=== PATIENT | male | born 1985 | race Two or more races ===

== ENCOUNTER 2021-04-01 19:04 | Inpatient (IN) | payer OTHER ==
[~2021-04-01] VITALS: Ht 172.7 cm; Wt 88.0 kg
--- NOTE | 2021-04-01 19:21 | NUR ---
PT BIBRA [address] ACCORDING TO PARAMEDICS FRIENDS REPORT PT HAD BEEN DRINKING AND NOT WAKING UP. PT DOES NOT RESPOND TO PAINFUL STIMULI. CONNECTED PT TO POX AND MONITOR. SAFETY MEASURES IN PLACE
--- NOTE | 2021-04-01 19:25 | NUR ---
RAC #20G S/L & LAC #20G S/L PATENT AND INTACT. BLOOD COLLECTED AND SENT TO LAB. IVF NS 1000ML INFUSING PER LUTSKY'S VERBAL ORDER
[2021-04-01] MEDS ORDERED: NALOXONE PREFILLED SYRINGE 2 MG/2 ML SYRINGE ONE ×2 (19:29→19:36)
[2021-04-01] MEDS ORDERED: PROPOFOL 100 ML ONE ×2 (19:43→21:29)
[2021-04-01] MEDS: PROPOFOL 100 ML IV PRN ×5 (19:45→23:17)
--- NOTE | 2021-04-01 19:45 | NUR ---
DR. ZAY HAYNES AND RT AT PT'S BEDSIDE. PT NOT RESPONSIVE TO PAIN STUMN PER DR. COLLAZO'S VERBAL ORDERS: 1929 - NARCAN 2MG IVP 1934 NARCAN 2MG IVP 1939 ETON 20MG 1940 SUCC 100MG 1942 PT INTUBATED BY ZAY HAYNES 23 CM AT LIP & ETT 7.5 SIZE. BILATERAL BREATH SOUNDS HEARD. 1944 STARTED PROPOFOL 5MCG/KG/ML. 1944 PT CONNECTED TO VENTILATOR. PT TOLERATING SETTINGS WELL AT 100%: AC 15, TV 500, FIO2 100, PEEP 5
--- NOTE | 2021-04-01 20:11 | NUR ---
RT NOTE INTUBATED ALOC PT IN BED 13 W/ 7.5 ETTUBE 23 AT THE LIP, ON THE RIGHT SIDE. BILATERAL CHEST RISE WITH COLOR CHANGE PRESENT WHILE BAGGING. PLACED BITE BLOCK D/T PT WAKING UP. CURRENT SETTING APPLIED AC VC 14 500 100 +5. SUCTIONE CLEAR WHITE ORAL SECRETIONS. NONE VIA ETTUBE. NO INCREASED WOB. NO S/S OF RESPIRATORY DISTRESS NOTED. WILL CONTINUE TO MONITOR T/O SHIFT. ABG WILL BE DONE AFTER 1 HOUR.
--- NOTE | 2021-04-01 20:16 | NUR ---
16FR F/C PATENT AND INTACT. CLEAR YELLOW URINE DRAINING WELL. URINE COLLECTED AND SENT TO LAB
[2021-04-01 20:19] LABS: BASOPHILS # (AUTO) 0.1 K/uL (0.0-0.2); BASOPHILS % (AUTO) 0.5 % (0.0-2.0); EOSINOPHILS % (AUTO) 2.2 % (0.0-6.0); HEMATOCRIT 45 % (39-51); HEMOGLOBIN 15.8 g/dL (13.5-17.5); LYMPHOCYTES # (AUTO) 1.6 K/uL (0.8-4.8); LYMPHOCYTES % (AUTO) 16.6 % (20.0-44.0); MEAN CORPUSCULAR HGB CONC 35 g/dl (31.0-36.0); MEAN CORPUSCULAR VOLUME 98 fL (80-96); MONOCYTES # (AUTO) 0.8 K/uL (0.1-1.30); MONOCYTES % (AUTO) 8.3 % (2.0-12.0); NEUTROPHILS # (AUTO) 7.1 K/uL (1.8-8.9); NEUTROPHILS % (AUTO) 72.4 % (43.0-81.0); PLATELET COUNT (AUTO) 250 K/uL (150-450); WHITE BLOOD COUNT (AUTO) 9.7 K/uL (4.3-11.0)
[2021-04-01 20:30] LABS: CALCIUM, SERUM 7.8 mg/dL (8.5-10.1); CARBON DIOXIDE 26 mmol/L (21-32); CHLORIDE 104 mmol/L (98-107); CREATININE 0.9 mg/dL (0.6-1.3); GLUCOSE 112 mg/dL (74-106); SODIUM SERUM 141 mmol/L (136-145); UREA NITROGEN, BLOOD 10 mg/dL (7-18)
--- NOTE | 2021-04-01 20:40 | NUR ---
PT TAKEN TO RADIOLOGY FOR CT AND XRAY VIA ACLS PROTOCOL WITH RT
[2021-04-01 20:41] LABS: ACETAMINOPHEN 0 ug/ml (10-30); ALANINE AMINOTRANSFERASE 130 U/L (12-78); ALCOHOL, BLOOD 396 mg/dL (0-0); ALKALINE PHOSPHATASE 79 U/L (46-116); ASPARTATE AMINOTRANSFERASE 136 U/L (15-37); BILIRUBIN,DIRECT 0.2 mg/dL (0.0-0.2); BILIRUBIN,TOTAL 0.5 mg/dL (0.2-1.0); TOTAL PROTEIN, SERUM 6.3 g/dL (6.4-8.2)
--- NOTE | 2021-04-01 20:51 | NUR ---
PT RETURNED TO ER BED 13 FROM RADIOLOGY VIA ACLS PROTOCOL
--- NOTE | 2021-04-01 20:57 | NUR ---
RT NOTE TRANSFERRED PT TO/ FROM CT. NO S/S OF ACUTE RESPIRATORY DISTRESS. WILL CONTINUE TO MONITOR T/O SHIFT.
[2021-04-01 20:58] LABS: BILIRUBIN,URINE NEGATIVE (NEGATIVE); COLOR,URINE YELLOW (YELLOW); LEUKOCYTE ESTERASE ,URINE NEGATIVE (NEGATIVE); NITRITE, URINE NEGATIVE (NEGATIVE); PH,URINE 6.5 (5.0-8.0); PROTEIN,URINE NEGATIVE (NEGATIVE); UGLUCOSE NEGATIVE (NEGATIVE); UROBILINOGEN,URINE 0.2 EU/dL (0.2)
--- NOTE | 2021-04-01 21:11 | NUR ---
REPORT GIVEN TO DIPIKA UNIT CLERK FOR MELLY
[2021-04-01] MEDS ORDERED: NALOXONE PREFILLED SYRINGE 2 MG/2 ML SYRINGE IV ONE ×2 (21:30)
[2021-04-01] MEDS ORDERED: SUCCINYLCHOLINE CHLORIDE 20 MG/ML VIAL IV ONE (21:30)
[2021-04-01] MEDS ORDERED: ETOMIDATE 2 MG/ML VIAL IV ONE (21:30)
--- NOTE | 2021-04-01 21:33 | NUR ---
RT AT PT'S BEDSIDE FOR ABG
[2021-04-01 21:57] LABS: ABG BASE EXCESS -5.3 mmol/L; ABG OXYGEN SATURATION 99.4 % (92.0-98.5); ABG PCO2 41.5 mmHg (35.0-45.0); ABG PH 7.314 (7.350-7.450); ABG PO2 430.6 mmHg (75.0-100.0); AaDO2 240.9 mmHg; COHb 0.3 % (0.5-1.5); MetHb 0.3 % (0.0-1.5); O2Hb 98.8 % (94.0-97.0); SITE, ABG Right Radial; VENT MODE, BG AC 14 500 100% +5
[2021-04-01] MEDS ORDERED: IV NS 0.9% 1,000 ML BAG IV ONE (22:00)
[2021-04-01] MEDS ORDERED: PROPOFOL 100 ML IV PRN (22:00)
--- NOTE | 2021-04-01 22:04 | NUR ---
RT NOTE ABG DONE. RESULTS GIVEN TO RN AND MD. LOWERED FIO2 TO 60% FROM 100%.
[2021-04-01] MEDS ORDERED: POTASSIUM CL. PREMIX PERIPHER. 150 ML ONE (22:05)
[2021-04-01] MEDS: POTASSIUM CL. PREMIX PERIPHER. 50 ML IV SCH ×2 (22:21→23:20)
--- NOTE | 2021-04-01 22:28 | NUR ---
MRSA SWAB COLLECTED AND SENT TO LAB. PATIENT'S BELONGINGS LIST DONE.
[2021-04-01] MEDS ORDERED: ACETAMINOPHEN 650 MG/SUPP.RECT RC PRN (22:30)
[2021-04-01] MEDS ORDERED: NOREPINEPHRINE 8 MG in IV NS 0.9% 250 ML IV PRN (22:30)
--- NOTE | 2021-04-01 22:48 | NUR ---
RT NOTE TRANSPORTED PT SAFELY FROM ER BED 13 TO ICU 354. VENT SETTING AC VC 14 500 60% +5. ETT 7.5 AT 23 LIPLINE. PLUGGED INTO RED OUTLET AND ALARMS ON AND AUDIBLE. NO SOB OR S/S OF ACUTE RESPIRATORY DISTRESS NOTED. WILL CONTINUE TO MONITOR T/O SHIFT. Addendum: 04/02/21 at 0352 by STEPHY JORGE RT CORRECTION BED 254, NOT 354
--- NOTE | 2021-04-01 22:49 | NUR ---
PT TRANSFERRED TO ICU 254 VIA ACLS PROTOCOL WITH RT. PT ON PROPOFOL 65MCG/KG/MIN; PT SEDATED; ARROUNSABLE TO PAIN. RAJAN ASSISTANT SALES MANAGER AWARE. BEDSIDE REPORT GIVEN TO DIPIKA BRUCE FOR MELLY. ALL BELONGINGS WITH PT. VSS TOLERATED TRANSFER WELL.
--- NOTE | 2021-04-01 22:50 | NUR ---
NEWS AGENT NOTE ADMIT 35 YEARS OLD MALE TO ICU UNIT AT ROOM 254 NOT VERBALLY RESPONSIVE ONLY RESPONSE TO PAIN STIMULI,ON MECHANICAL VENT ORALLY INTUBATED 23/7.5 AC 14 TV 500 FIO2:60% PEEP 5 ADMITTING DIAGNOSIS IS ACUTE HYPOXIC RESPIRATORY FAILURE,PATIENT SEDATED ON PROPOFOL DRIP 65MCG/KG/MIN,PRIOR ADMISSION AT ER,IV SITE IS ON LEFT AC AND RIGHT AC INTACT PATENT,FRENCH CATHETER IN PLACE URINE DRAINING YELLOW /CLEAR BY GRAVITY,SOFT BILATERAL WRIST RESTRAIN IN PLACE WILL CHECK EVERY 15 MINS FOR SKIN BREAKDOWN AND CIRCULATION,SAFETY MEASURE IMPLEMENT CONTINUE TO MONITOR
[2021-04-01] MEDS ORDERED: VANCOMYCIN 1.5 GM in IV D5W 500ml IV ONE (23:00)
[2021-04-01 23:01] VITALS: BP 136/103
[2021-04-01] MEDS: ENOXAPARIN SODIUM 40 MG/0.4 ML DISP.SYRIN SQ SCH (23:18)
[2021-04-01] MEDS ORDERED: VANCOMYCIN 1 GM VIAL ONE (23:20)
[2021-04-01 23:21] VITALS: BP 118/77
[2021-04-01] MEDS ORDERED: PIPERACILLIN /TAZOBACTAM 3.375 G VIAL IV ONE (23:21)
[2021-04-01 23:24] VITALS: BP 136/103
[2021-04-01 23:40] VITALS: BP 113/72
[2021-04-02] VITALS (25 sets, daily range): BP systolic 109–148; BP diastolic 57–93
[2021-04-02] MEDS ORDERED: PIPERACILLIN /TAZOBACTAM 3.375 G in IV D5W 50 ML IV SCH
[2021-04-02] MEDS: IV NS 0.9% 1,000 ML IV PRN ×2 (00:36→14:03)
--- NOTE | 2021-04-02 00:43 | NUR ---
RN NOTE INSERTED MIDLINE FOR MULTIPLIES IV MEDS ON RIGHT UPPER ARM #18 CONTINUE TO MONITOR.
[2021-04-02] MEDS: POTASSIUM CL. PREMIX PERIPHER. 50 ML IV SCH ×3 (00:52→11:04)
[2021-04-02] MEDS: ZOSYN IVPB 3.375 G in IV D5W 50ml IV SCH ×2 (00:58→06:12)
[2021-04-02] MEDS: PROPOFOL 100 ML IV PRN ×14 (03:26→23:02)
--- NOTE | 2021-04-02 03:50 | NUR ---
RT NOTE DECREASED FIO2 TO 50%. RN DIPIKA NOTIFIED. SPO2 CURRENTLY 100%. NO S/S OF ACUTE RESPIRATORY DISTRESS. WILL CONTINUE TO MONITOR T/O SHIFT.
--- NOTE | 2021-04-02 03:56 | NUR ---
RN NOTE PATIENT HR IS 140 NOTIFIED RAJAN MCINTOSH NP CONTINUE TO MONITOR
[2021-04-02] MEDS: LORAZEPAM INJ 2 MG/ML VIAL IV PRN ×5 (04:05→21:41)
--- NOTE | 2021-04-02 04:05 | NUR ---
RN NOTE PATIENT IS ANXIOUS NOT STAY IN BED CALLED HEALTH CARE ANALYST [facility] AND RECEIVED ORDER ATIVAN 2MG/ML PRN EVERY 4HOURS NOTED AND CARRIED OUT.
[2021-04-02 04:54] LABS: BASOPHILS % (AUTO) 0.4 % (0.0-2.0); EOSINOPHILS % (AUTO) 1.4 % (0.0-6.0); HEMATOCRIT 43 % (39-51); HEMOGLOBIN 14.8 g/dL (13.5-17.5); LYMPHOCYTES # (AUTO) 1.8 K/uL (0.8-4.8); LYMPHOCYTES % (AUTO) 21.6 % (20.0-44.0); MEAN CORPUSCULAR HGB CONC 34 g/dl (31.0-36.0); MEAN CORPUSCULAR VOLUME 99 fL (80-96); MONOCYTES # (AUTO) 0.8 K/uL (0.1-1.30); MONOCYTES % (AUTO) 9.1 % (2.0-12.0); NEUTROPHILS # (AUTO) 5.7 K/uL (1.8-8.9); NEUTROPHILS % (AUTO) 67.5 % (43.0-81.0); PLATELET COUNT (AUTO) 260 K/uL (150-450); RED BLOOD CELL COUNT(AUTO) 4.39 MIL/uL (4.5-6.0); WHITE BLOOD COUNT (AUTO) 8.5 K/uL (4.3-11.0)
[2021-04-02 05:05] LABS: ALBUMIN 2.5 g/dL (3.4-5.0); BILIRUBIN,TOTAL 0.5 mg/dL (0.2-1.0); CALCIUM, SERUM 7.2 mg/dL (8.5-10.1); CREATININE 0.8 mg/dL (0.6-1.3); PHOSPHORUS 3.2 mg/dL (2.5-4.9); POTASSIUM 3.3 mmol/L (3.5-5.1); TOTAL PROTEIN, SERUM 5.4 g/dL (6.4-8.2)
[2021-04-02 05:13] LABS: THYROID STIMULATING HORMONE 0.67 uIU/mL (0.358-3.74)
[2021-04-02] MEDS ORDERED: PIPERACILLIN /TAZOBACTAM 3.375 G VIAL IV ONE (05:30)
--- NOTE | 2021-04-02 06:00 | NUR ---
RN NOTE PATIENT STILL RESTLESS CALLED DAYNA GALARZA AND RECEIVED ORDER FOR PROPOFOL 100MCG/KG/MIN ALSO ABG RESULT NOTIFIED DAY[facility],RECEIVED ORDER FOR KEEP THE SAME SETTING FOR VENT CONTINUE TO MONITOR.
[2021-04-02 06:07] LABS: ABG BASE EXCESS -3.4 mmol/L; ABG PCO2 42.8 mmHg (35.0-45.0); ABG PH 7.336 (7.350-7.450); AaDO2 212.4 mmHg; MetHb 0.5 % (0.0-1.5); O2Hb 96.5 % (94.0-97.0); SITE, ABG Right Radial; VENT MODE, BG AC 14 500 50% +5
--- NOTE | 2021-04-02 07:26 | NUR ---
RN NOTE PATIENT REMAINS ON SEDATED ON MECHANICAL VENT ON FRENCH CATHETER ALL DUE MEDS GIVEN MD ORDERED KEPT CLEAN AND DRY ALL THE TIME,ENDORSE NEXT COMING SHIFT FOR CONTINUATION CARE.
--- NOTE | 2021-04-02 07:30 | NUR ---
OPENING NOTE: REPORT RECEIVED FROM DIPIKA BRUCE. PT SEDATED ON 100MCG/KG/MIN OF PROPOFOL PER MD ORDERS. IVF INFUSING NS AT 100ML/HR. FRENCH CATHETER DRAINING WITHOUT DIFFICULTY. RESTRAINTS IN PLACE PER MD ORDERS. PT CHECKED ON HOURLY AND PRN BY NURSING STAFF.
[2021-04-02] MEDS: PANTOPRAZOLE 40 MG VIAL IV SCH (08:27)
[2021-04-02] MEDS: VANCOMYCIN 1.25 GM in IV D5W 250 ML IV SCH ×2 (08:27→16:47)
[2021-04-02] MEDS: PIPERACILLIN /TAZOBACTAM 3.375 G in IV D5W 100 ML IV SCH ×2 (10:38→18:45)
[2021-04-02] MEDS ORDERED: ETOMIDATE 2 MG/ML VIAL IV ONE (12:36)
[2021-04-02] MEDS ORDERED: SUCCINYLCHOLINE CHLORIDE 20 MG/ML VIAL IV ONE (12:36)
--- NOTE | 2021-04-02 18:24 | NUR ---
END OF SHIFT NOTE: PT HAD A FAIRLY UNEVENTFUL SHIFT. PT WAKES UP EASILY WITH FULL SEDATION AND GETS AGITATED. ATIVAN GIVEN Q4H TO HELP WITH AGITATION. NO WEANING TODAY PER DR GUERRERO. SIMV WEANING TRIAL ORDERED FOR TOMORROW MORNING. PT CHECKED ON HOURLY AND PRN BY NURSING STAFF.
--- NOTE | 2021-04-02 21:14 | NUR ---
ICU/BAKERY DELIVERER PT WAS GIVEN ATIVAN IVP PRN BY PRINTING PLATE SETTER NURSE FOR AGITATION BEFORE PM BATH. WILL CONTINUE TO MONITOR THIS PT AND HIS AGITATION.
[2021-04-02] MEDS: ENOXAPARIN SODIUM 40 MG/0.4 ML DISP.SYRIN SQ SCH (22:40)
[2021-04-03] VITALS (27 sets, daily range): BP systolic 112–163; BP diastolic 46–101
[2021-04-03] MEDS: VANCOMYCIN 1.25 GM in IV D5W 250 ML IV SCH ×2 (00:42→09:00)
[2021-04-03] MEDS: PROPOFOL 100 ML IV PRN ×4 (00:47→06:11)
[2021-04-03] MEDS: IV NS 0.9% 1,000 ML IV PRN ×2 (01:25→15:32)
[2021-04-03] MEDS: PIPERACILLIN /TAZOBACTAM 3.375 G in IV D5W 100 ML IV SCH ×3 (02:19→17:14)
[2021-04-03 05:35] LABS: CALCIUM, SERUM 6.9 mg/dL (8.5-10.1); POTASSIUM 2.9 mmol/L (3.5-5.1)
[2021-04-03 07:08] LABS: BASOPHILS # (AUTO) 0.1 K/uL (0.0-0.2); BASOPHILS % (AUTO) 0.8 % (0.0-2.0); EOSINOPHILS % (AUTO) 4.4 % (0.0-6.0); HEMOGLOBIN 12.9 g/dL (13.5-17.5); LYMPHOCYTES # (AUTO) 0.8 K/uL (0.8-4.8); MONOCYTES # (AUTO) 0.9 K/uL (0.1-1.30); MONOCYTES % (AUTO) 12.2 % (2.0-12.0)
--- NOTE | 2021-04-03 07:26 | NUR ---
OPENING NOTE: REPORT RECEIVED FROM FELTON NEVAREZ. PER REPORT ATIVAN GIVEN X1 OVERNIGHT. PT APPEARS CALM THIS AM ON PROPOFOL 100MCG/KG/MIN. PLAN IS TO SO A SIMV WEANING TRIAL PER DR GUERRERO THIS AM. PT CHECKED ON HOURLY AND PRN BY NURSING STAFF.
[2021-04-03 07:29] LABS: HEMATOCRIT 37 % (39-51); LYMPHOCYTES % (AUTO) 10.4 % (20.0-44.0); MEAN CORPUSCULAR HGB CONC 35 g/dl (31.0-36.0); MEAN CORPUSCULAR VOLUME 99 fL (80-96); NEUTROPHILS # (AUTO) 5.6 K/uL (1.8-8.9); NEUTROPHILS % (AUTO) 72.2 % (43.0-81.0); PLATELET COUNT (AUTO) 205 K/uL (150-450); RED BLOOD CELL COUNT(AUTO) 3.76 MIL/uL (4.5-6.0); WHITE BLOOD COUNT (AUTO) 7.8 K/uL (4.3-11.0)
[2021-04-03] MEDS: PANTOPRAZOLE 40 MG VIAL IV SCH (09:03)
--- NOTE | 2021-04-03 10:25 | NUR ---
SW spoke with charge nurse. Pt. is intubated and is not able to be interviewed. SW will try again once pt. is oriented.
[2021-04-03 10:47] LABS: ABG BASE EXCESS -0.5 mmol/L; ABG OXYGEN SATURATION 97.1 % (92.0-98.5); ABG PCO2 39.3 mmHg (35.0-45.0); ABG PH 7.405 (7.350-7.450); ABG PO2 88.9 mmHg (75.0-100.0); AaDO2 78.8 mmHg; COHb 0.5 % (0.5-1.5); MetHb 0.3 % (0.0-1.5); O2Hb 96.3 % (94.0-97.0); SITE, ABG Left Radial; VENT MODE, BG SIMV 4 PS 15 +5 30%
[2021-04-03] MEDS ORDERED: POTASSIUM CHLORIDE 10 MEQ/50 ML PREMIXED IVPB FOR PERIPHERAL LINE IV ONE (11:00)
[2021-04-03] MEDS: POTASSIUM CHLORIDE 10 MEQ/50 ML PREMIXED IVPB FOR PERIPHERAL LINE IV SCH ×3 (11:04→12:09)
--- NOTE | 2021-04-03 11:49 | NUR ---
PT EXTUBATED WITHOUT DIFFICULTY AT 1141 BY ANDREY BASS. PT IS CURRENTLY ON 2LNC.
[2021-04-03] MEDS ORDERED: DC PROPOFOL WHEN EXTUBATED XX PRN (12:00)
[2021-04-03] MEDS: POTASSIUM CL. PREMIX PERIPHER. 50 ML IV SCH ×3 (12:23→14:44)
[2021-04-03] MEDS ORDERED: POTASSIUM CHLORIDE 10 MEQ/50 ML PREMIXED IVPB FOR PERIPHERAL LINE IV SCH (12:30)
[2021-04-03] MEDS: LORAZEPAM INJ 2 MG/ML VIAL IV PRN ×3 (15:52→22:53)
[2021-04-03] MEDS ORDERED: CHLORDIAZEPOXIDE HCL 25 MG CAPSULE PO SCH (17:00)
--- NOTE | 2021-04-03 18:45 | NUR ---
END OF SHIFT NOTE: PT WAS EXTUBATED AT 1141. PT IS EXTREMELY CONFUSED AND OCCASIONALLY COMBATIVE, KICKING STAFF. PT UNABLE TO TELL NURSING STAFF HIS NAME. PT CONTINUES TO BE IN RESTRAINTS. ATIVAN GIVEN PER MD ORDERS AND 1 X DOSE OF LIBRIUM GIVEN PER MD ORDERS FOR DT'S. PT CHECKED ON FREQUENTLY BY NURSING STAFF.
--- NOTE | 2021-04-03 20:25 | NUR ---
ICU/LABORER PT IS VERY AGITATED, THROWING LEGS OVER THE BED RAILS, YELLING OUT, KICKING NURSES, PULLING ON LINES.PT HAS HX OF ALCOHOLISM. PT CURRENTLY HAS ATIVAN 2MG IVP PRN EVERY 4 HOURS. CALLED THE GLASS MOULD CLEANER ZAYNAB [employer]UBBS TO GET SOMETHING FOR THIS PT. RECIEVED ORDERS FOR ATIVAN 2MG IVP EVERY 2 HRS PRN. ORDERS RECIEVED AND CARRIED OUT.
[2021-04-03] MEDS: VANCOMYCIN 1 GM in IV D5W 250 ML IV SCH (20:33)
--- NOTE | 2021-04-03 20:44 | NUR ---
ICU/WEB APPLICATION TESTER VANCO TROUGH IS 12 @1999. THIS IS FROM 37 EARLIER IN THE DAY. VANCO WAS THEN SCANNED AND THEN HANG UP BY ELECTRICAL LOGGING OPERATOR NURSE.
--- NOTE | 2021-04-03 21:26 | NUR ---
ICU/AUTO REPAIR TECHNICIAN PT IS EXTREMELY AGITATED, NOTIFED CHARGE NURSE NOTIFED ABOUT THIS ATIVAN 2MG GIVEN IVP. WILL CONTINUE TO MONITOR THIS PT.
[2021-04-03] MEDS: ENOXAPARIN SODIUM 40 MG/0.4 ML DISP.SYRIN SQ SCH (21:37)
--- NOTE | 2021-04-03 22:54 | NUR ---
ICU/BARREL RIFLER BROACH PT IS HAVING VERY AGITATED, KICKING THE BED AND TRYING TO GET UP. NOTIFED CHARGE NURSE WHO THEN GAVE ATIVAN 2MG GIVEN IVP. WILL CONTINUE TO MONITOR THIS PT.
[2021-04-04] VITALS (25 sets, daily range): BP systolic 126–166; BP diastolic 74–110
[2021-04-04] MEDS: IV NS 0.9% 1,000 ML IV PRN ×2 (01:17→18:04)
[2021-04-04] MEDS: PIPERACILLIN /TAZOBACTAM 3.375 G in IV D5W 100 ML IV SCH ×3 (01:19→17:42)
[2021-04-04] MEDS: LORAZEPAM INJ 2 MG/ML VIAL IV PRN ×9 (02:05→22:53)
--- NOTE | 2021-04-04 02:22 | NUR ---
ICU/INDEPENDENT CONTRACTOR PT IS VERY AGITATED, KICKING THE BED AND TRYING TO GET UP. NOTIFED CHARGE NURSE WHO THEN GAVE ATIVAN 2MG GIVEN IVP. WILL CONTINUE TO MONITOR THIS PT.
[2021-04-04 05:14] LABS: POTASSIUM 3.4 mmol/L (3.5-5.1)
--- NOTE | 2021-04-04 05:30 | NUR ---
ICU/EARLY HEAD START TEACHER PT IS VERY AGITATED, KICKING THE BED AND TRYING TO GET UP. NOTIFED CHARGE NURSE WHO THEN GAVE ATIVAN 2MG GIVEN IVP. WILL CONTINUE TO MONITOR THIS PT.
[2021-04-04 05:43] LABS: BASOPHILS % (AUTO) 0.5 % (0.0-2.0); EOSINOPHILS % (AUTO) 1.5 % (0.0-6.0); HEMATOCRIT 38 % (39-51); HEMOGLOBIN 13.3 g/dL (13.5-17.5); LYMPHOCYTES # (AUTO) 0.6 K/uL (0.8-4.8); LYMPHOCYTES % (AUTO) 6.5 % (20.0-44.0); MEAN CORPUSCULAR HGB CONC 35 g/dl (31.0-36.0); MEAN CORPUSCULAR VOLUME 98 fL (80-96); MONOCYTES # (AUTO) 0.7 K/uL (0.1-1.30); MONOCYTES % (AUTO) 7.5 % (2.0-12.0); NEUTROPHILS # (AUTO) 7.7 K/uL (1.8-8.9); PLATELET COUNT (AUTO) 220 K/uL (150-450); RED BLOOD CELL COUNT(AUTO) 3.89 MIL/uL (4.5-6.0); WHITE BLOOD COUNT (AUTO) 9.1 K/uL (4.3-11.0)
--- NOTE | 2021-04-04 06:36 | NUR ---
ICU/HIDE AND SKIN CLASSER THIS MORNING XRAY SHOWS NEW INFILTRATES WHICH WAS NOT THERE YESTERDAY. CALL ED THE ARCHITECTURAL ENGINEER TO MAKE HIM AWARE. WAIT FOR CALL BACK.
--- NOTE | 2021-04-04 07:30 | NUR ---
OPENING NOTE: REPORT RECEIVED FROM FELTON NEVAREZ. PT CONTINUES TO BE CONFUSED AND AGITATED. PT APPEARS TO BE GOING THROUGH WITHDRAWALS. PT IN RESTRAINTS AND NEEDS CLOSE MONITORING. PER REPORT ATIVAN GIVEN Q2H OVERNIGHT WITH LIMITED SUCCESS WTIH CALMING PATIENT. WILL CONTINUE TO MONITOR.
[2021-04-04] MEDS ORDERED: HALOPERIDOL LACTATE INJ 5 MG/ML VIAL IM ONE (08:30)
--- NOTE | 2021-04-04 09:00 | NUR ---
PT GIVEN HALDOL 10MG IM PER MD ORDERS. PT APPEARS TO BE SLEEPING AT THIS TIME. PRIOR TO FALLING ASLEEP PT WAS ABLE TO TELL RN HIS NAME IS BRAYDEN GARZA BORN IN 1985. SOCIAL WORK CONSULT ORDERED WITH INFORMATION.
[2021-04-04] MEDS: VANCOMYCIN 1 GM in IV D5W 250 ML IV SCH ×2 (09:18→20:06)
[2021-04-04] MEDS: PANTOPRAZOLE 40 MG VIAL IV SCH (09:18)
[2021-04-04] MEDS: POTASSIUM CL. PREMIX PERIPHER. 50 ML IV SCH ×4 (09:18→12:29)
--- NOTE | 2021-04-04 15:20 | NUR ---
SS Note: SW notified by RNDanelle that pt. was alert & lucid for a moment and stated to her that his name was Sanjiv Huff ( 1985). Danelle provided previous . This SW called the pt.'s next of kin listed : Mother, Raymond Huff. However, number is now disconnected no other point of contact listed on previous admissions SW will remain available as needed.
--- NOTE | 2021-04-04 18:45 | NUR ---
END OF SHIFT NOTE: HALDOL GIVEN THIS AM HELPED A LOT TO CALM PATIENT TODAY ALONG WITH GIVING ATIVAN Q2H PER MD ORDERS. PT GETS AGITATED RIGHT BEFORE NEXT DOSE DUE. 4 POINT RESTRAINTS APPLIED THIS AM PER MD ORDERS. PER PREVIOUS NOTE PT WAS COHERENT BRIEFLY EARLIER TO STATE AND SPELL HIS NAME TO RN. PT CHECKED ON FREQUENTLY BY NURSING STAFF.
--- NOTE | 2021-04-04 20:22 | NUR ---
ICU/ZIPPER SLIDE ATTACHER PT IS VERY AGITATED, KICKING THE BED AND TRYING TO GET UP. NOTIFED CHARGE NURSE WHO THEN GAVE ATIVAN 2MG IVP. WILL CONTINUE TO MONITOR THIS PT.
[2021-04-04] MEDS: ENOXAPARIN SODIUM 40 MG/0.4 ML DISP.SYRIN SQ SCH (22:55)
--- NOTE | 2021-04-04 23:00 | NUR ---
ICU/MULTIFOLD OPERATOR PT IS VERY AGITATED, KICKING THE BED AND TRYING TO GET UP. NOTIFED CHARGE NURSE WHO THEN GAVE ATIVAN 2MG IVP. WILL CONTINUE TO MONITOR THIS PT.
[2021-04-05] VITALS (26 sets, daily range): BP systolic 133–161; BP diastolic 75–112
[2021-04-05] MEDS: PIPERACILLIN /TAZOBACTAM 3.375 G in IV D5W 100 ML IV SCH ×3 (01:26→17:07)
[2021-04-05] MEDS: LORAZEPAM INJ 2 MG/ML VIAL IV PRN ×5 (01:26→22:05)
[2021-04-05 04:45] LABS: BASOPHILS # (AUTO) 0.1 K/uL (0.0-0.2); BASOPHILS % (AUTO) 0.8 % (0.0-2.0); EOSINOPHILS % (AUTO) 2.2 % (0.0-6.0); HEMATOCRIT 40 % (39-51); HEMOGLOBIN 13.8 g/dL (13.5-17.5); LYMPHOCYTES % (AUTO) 8.8 % (20.0-44.0); MEAN CORPUSCULAR HGB CONC 35 g/dl (31.0-36.0); MEAN CORPUSCULAR VOLUME 98 fL (80-96); MONOCYTES # (AUTO) 1.1 K/uL (0.1-1.30); NEUTROPHILS # (AUTO) 8.4 K/uL (1.8-8.9); NEUTROPHILS % (AUTO) 78.2 % (43.0-81.0); PLATELET COUNT (AUTO) 214 K/uL (150-450); RED BLOOD CELL COUNT(AUTO) 4.06 MIL/uL (4.5-6.0); WHITE BLOOD COUNT (AUTO) 10.8 K/uL (4.3-11.0)
[2021-04-05 05:08] LABS: CALCIUM, SERUM 7.8 mg/dL (8.5-10.1); CREATININE 0.9 mg/dL (0.6-1.3); POTASSIUM 3.7 mmol/L (3.5-5.1)
[2021-04-05] MEDS: IV NS 0.9% 1,000 ML IV PRN ×2 (06:16→16:09)
--- NOTE | 2021-04-05 07:13 | NUR ---
RN OPENING NOTE RECEIVE REPORT FROM TOUR OPERATOR NURSE. PATIENT IN STABLE CONDITION WITH NO SIGN OF DISTRESS. RESTING COMFORTABLY IN BE. ON 3L OF OXYGEN VIA NC. WHEN AWAKE PATIENT IS CONFUSED AND AT TIME GET AGITATED. CURRENTLY RUNNING NS @ 100ML/HR. LANDY MID LINE FLUSH WELL. ATIVAN WAS GIVEN DURING NIGHT. WILL REASSESS DURING DAY SHIFT. WILL FOLLOW UP AM LAB AND DOCTOR ORDERS. PROPER ISOLATION PRECAUTION IN PLACE. ALL SAFETY MEASURE IN PLACE. BED ON LOWEST POSITION WITH HOB ELEVATED. AND 3 SIDE RAIL UP. CALL LIGHT WITHIN REACH. WILL CONTINUE TO MONITOR.
[2021-04-05] MEDS: PANTOPRAZOLE 40 MG VIAL IV SCH (08:47)
--- NOTE | 2021-04-05 08:55 | NUR ---
RN NOTE VANCOMYCIN NOT IN MEDICATION CELL. PHARMACY WAS CALLED. PHARMACY IS TRYING TO LOCATE VANCOMYCIN.
[2021-04-05] MEDS: VANCOMYCIN 1 GM in IV D5W 250 ML IV SCH ×2 (09:18→20:05)
--- NOTE | 2021-04-05 13:25 | NUR ---
RN NOTE SPUTUM CULTURE WAS COLLECTED PER PHARMACY REQUEST. LAB WAS NOTIFIED TO MOTOR AND CHASSIS INSPECTOR SPECIMEN IN ICU.
--- NOTE | 2021-04-05 18:34 | NUR ---
RN CLOSING NOTE PATIENT REMAIN IN STABLE CONDITION WITH NO SIGN OF DISTRESS THROUGH OUT SHIFT. CONTINUE RECEIVING OXYGEN WITH HUMIDIFIER AT 3L/MIN VIA NC WITH O2 SAT OF 95% AND ABOVE. NC WAS REMOVED WITH PATIENT BREATHING ROOM AIR WITH O2 SAT OF 92% AND ABOVE. PATIENT REMAIN CONFUSED AND AGITATED WHEN AWAKE. NEED TO BE REORIENT OFTEN. PATIENT IS REQUESTING FOOD. SWALLOW EVALUATION HAVE BEEN ORDER. VANCOMYCIN AND ZOSYN WAS GIVEN DURING SHIFT. CONTINUING IV HYDRATION WITH NS @100ML/HR. PATIENT MOVE AND REPOSITION IN BED INDEPENDENTLY. PROPER ISOLATION PRECAUTION IN PLACE. ALL SAFETY MEASURE IN PLACE. BED ON LOWEST POSITION WITH HOB ELEVATED. AND 3 SIDE RAIL UP. CALL LIGHT WITHIN REACH. WILL CONTINUE TO MONITOR AND GIVE REPORT TO SERVICE DESK ASSOCIATE NURSE.
--- NOTE | 2021-04-05 19:56 | NUR ---
ICU OPENING NOTES: RECEIVED PATIENT FROM DAY SHIFT, PATIENT IN BED, ON ROOM AIR, SATURATING 93%, PATIENT AGITATED AND CONFUSED, TELE MONITOR SHOWS SR/ST, LANDY MIDLINE PATENT AND INTACT, NS RUNNING AT 100 ML/HR, NO SIGNS OF SOB, NO DISTRESS NOTED. WILL CONTINUE TO MONITOR AND ADMINISTER NURSING INTERVENTIONS NEEDED.
--- NOTE | 2021-04-05 20:00 | NUR ---
CONVEYANCER NOTES: PATIENT GIVEN 1ML ATIVAN FOR AGITATION AT 2000
[2021-04-05] MEDS: ENOXAPARIN SODIUM 40 MG/0.4 ML DISP.SYRIN SQ SCH (22:02)
--- NOTE | 2021-04-05 22:05 | NUR ---
CORPORATE TAX MANAGER NOTES: ATIVAN ADMINISTERED FOR AGITATION 2200.
[2021-04-06] VITALS (27 sets, daily range): BP systolic 134–168; BP diastolic 70–125
[2021-04-06] MEDS: PIPERACILLIN /TAZOBACTAM 3.375 G in IV D5W 100 ML IV SCH ×3 (01:01→17:48)
--- NOTE | 2021-04-06 03:20 | NUR ---
ARTIFACTS CONSERVATOR NOTES: ATIVAN ADMINISTERED FOR AGITATION 1880
[2021-04-06] MEDS: LORAZEPAM INJ 2 MG/ML VIAL IV PRN ×6 (03:22→21:27)
[2021-04-06] MEDS: IV NS 0.9% 1,000 ML IV PRN (03:54)
--- NOTE | 2021-04-06 05:29 | NUR ---
ELECTRICAL SIGN WIRER HELPER NOTES: ATIVAN GIVEN AT 0530 FOR AGITATION AND YELLING
[2021-04-06 05:38] LABS: BASOPHILS # (AUTO) 0.1 K/uL (0.0-0.2); BASOPHILS % (AUTO) 0.7 % (0.0-2.0); EOSINOPHILS % (AUTO) 5.1 % (0.0-6.0); HEMATOCRIT 39 % (39-51); HEMOGLOBIN 13.9 g/dL (13.5-17.5); LYMPHOCYTES % (AUTO) 9.7 % (20.0-44.0); MEAN CORPUSCULAR HGB CONC 35 g/dl (31.0-36.0); MEAN CORPUSCULAR VOLUME 97 fL (80-96); MONOCYTES # (AUTO) 0.9 K/uL (0.1-1.30); NEUTROPHILS # (AUTO) 7.4 K/uL (1.8-8.9); NEUTROPHILS % (AUTO) 75.5 % (43.0-81.0); PLATELET COUNT (AUTO) 289 K/uL (150-450); RED BLOOD CELL COUNT(AUTO) 4.06 MIL/uL (4.5-6.0); WHITE BLOOD COUNT (AUTO) 9.9 K/uL (4.3-11.0)
[2021-04-06 05:46] LABS: CALCIUM, SERUM 8.4 mg/dL (8.5-10.1); CREATININE 0.9 mg/dL (0.6-1.3); POTASSIUM 3.1 mmol/L (3.5-5.1)
--- NOTE | 2021-04-06 07:05 | NUR ---
GAS ENGINE OPERATOR CLOSING NOTES: PATIENT IN BED, RESTING, A/O X1, RECEIVING NS AT 100 ML/HR, ON ROOM AIR, SATURATING 97%, NO SOB, NO DISTRESS, WILL CONTINUE TO MONITOR AND ENDORSE TO DAY SHIFT.
[2021-04-06] MEDS: VANCOMYCIN 1 GM in IV D5W 250 ML IV SCH ×2 (08:23→22:15)
[2021-04-06] MEDS: PANTOPRAZOLE 40 MG VIAL IV SCH (08:38)
[2021-04-06] MEDS: POTASSIUM CL. PREMIX PERIPHER. 50 ML IV SCH ×4 (10:57→14:11)
--- NOTE | 2021-04-06 17:51 | NUR ---
RN NOTE TRANSFERRED PT TO ,ED/SURG 3 WEST, PT IN GOOD CONDITION. RESTING WELL. V/S STABLE. NOT IN RESPIRATORY DISTRESS. NO COMPLAINTS OF PAIN AND DISCOMFORT. VERBALLY RESPONSIVE. ENDORSED TO JANIS VAZQUEZ.
--- NOTE | 2021-04-06 18:15 | NUR ---
DELIVERY ROUTE DRIVER NOTE PATIENT ADMITTED FROM ICU TRANSFERRED VIA BED IN ACCOMPANIED BY 2 NURSES. PATIENT ALERT AND ORIENTED X1 WITH SOFT WRIST RESTRAINT WITH GOOD CIRCULATION. COMFORT MEASURES PROVIDED. PATIENT WITH RIGHT UPPER ARM MIDLINE PATENT AND INTACT. STARTED IVF ORDERED AND IV ANTIBIOTIC GIVEN WELL. WITH FRENCH CATHETER TO URINE BAG, WITH LIGHT YELLOW URINE. SAFETY MEASURES ENSURED WITH BED AT LOWEST LOCKED POSITION WITH SIDERAILS RAISED. CALL LIGHT WITHIN REACH AT ALL TIMES. WILL CONTINUE TO MONITOR PATIENT,.
--- NOTE | 2021-04-06 18:33 | NUR ---
RN NOTE MD VISITED AT BEDSIDE WITH VERBAL ORDER TO DO NURSING SWALLOW EVAL OF CLEAR FLUIDS. PT ABLE TO TOLERATE CLEAR LIQUIDS SIPPING STRAW, WITH HOB ELEVATED, AND ASPIRATION PREC MEASURES FOLLOWED. MD MADE AWARE AND WITH VERBAL ORDER TO START PT ON CLEAR LIQUID DIET.
--- NOTE | 2021-04-06 19:13 | NUR ---
HEEL BUILDER MACHINE CLOSING NOTE PATIENT ALERT AND ORIENTED X1 WITH SOFT WRIST RESTRAINT WITH GOOD CIRCULATION. COMFORT MEASURES PROVIDED. PATIENT WITH RIGHT UPPER ARM MIDLINE PATENT AND INTACT. STARTED IVF ORDERED AND IV ANTIBIOTIC GIVEN WELL. WITH FRENCH CATHETER TO URINE BAG, WITH LIGHT YELLOW URINE. PT BECAME RESTLESS AND DISRUPTIVE, ATIVAN GIVEN INDICATED SAFETY MEASURES ENSURED WITH BED AT LOWEST LOCKED POSITION WITH SIDERAILS RAISED. CALL LIGHT WITHIN REACH AT ALL TIMES. ENDORSED TO NEC=XT SHIFT FOR CONTINIUTY OF CARE.
--- NOTE | 2021-04-06 19:40 | NUR ---
TELE OPENING NOTE PATIENT RECEIVED ASLEEP IN BED. A/OX1 (TO NAME). NO S/S OF DISTRESS, BREATHING SYMMETRICAL, CABINET PROFESSIONAL REPORTS SR71. SAFETY MEASURES IN PLACE: BED AT LOWEST POSITION, RAILS UP X2, CALL BARRETT WITHIN REACH. WILL CONTINUE TO MONITOR.
[2021-04-06] MEDS: ENOXAPARIN SODIUM 40 MG/0.4 ML DISP.SYRIN SQ SCH (22:59)
[2021-04-07] MEDS: LORAZEPAM INJ 2 MG/ML VIAL IV PRN ×2 (00:41→02:07)
[2021-04-07] MEDS: PIPERACILLIN /TAZOBACTAM 3.375 G in IV D5W 100 ML IV SCH ×3 (03:26→17:12)
--- NOTE | 2021-04-07 04:20 | NUR ---
ENT SURGEON NOTE ALTHOUGH PATIENT IS ON BILAT SOFT WRIST RESRTAINTS HE STILL MANAGED TO GET OUT TWICE ACCORDING TO SITTER. PATIENT BECAME COMBATIVE AND STARTED YELLING, CURSING AND KICKING AT STAFF. PATIENT WOULD NOT CALM DOWN. SECURITY WAS CALLED FOR. PATIENT WAS PLACED BACK INTO RESTRAINS. ALL COMFORT MEASURES FOLLOWED TO HELP CALM THE PATIENT. PATIENT BECXAME EVEN MORE UNRULY AND STARTED JERKING AND PULLING AT THE BED. DR. PRECIADO WAS CONTACTED. I SPOKE WITH THE MD STATING THE AFOREMENTIONED. PER MD I WAS ABLE TO GIVE HALDOL 5MG INJ X 1. DR. PRECIADO ALSO STATED PATIENT WAS ABLE TO EAT SOMETHING PATIENT WAS INITIALLY NPO AND THIS LEAD TO THE PATIENT'S AGITATION. CLEAR LIQUID DIET IS CLEARED TO BE RESUMED.
[2021-04-07 04:25] VITALS: BP 152/93
[2021-04-07] MEDS ORDERED: HALOPERIDOL LACTATE INJ 5 MG/ML VIAL IM ONE (04:30)
[2021-04-07 07:04] LABS: BASOPHILS # (AUTO) 0.1 K/uL (0.0-0.2); BASOPHILS % (AUTO) 0.6 % (0.0-2.0); HEMATOCRIT 44 % (39-51); HEMOGLOBIN 15.7 g/dL (13.5-17.5); LYMPHOCYTES # (AUTO) 0.9 K/uL (0.8-4.8); LYMPHOCYTES % (AUTO) 9.4 % (20.0-44.0); MEAN CORPUSCULAR HGB CONC 36 g/dl (31.0-36.0); MEAN CORPUSCULAR VOLUME 96 fL (80-96); MONOCYTES # (AUTO) 1.2 K/uL (0.1-1.30); MONOCYTES % (AUTO) 12.2 % (2.0-12.0); NEUTROPHILS # (AUTO) 7.3 K/uL (1.8-8.9); NEUTROPHILS % (AUTO) 73.8 % (43.0-81.0); PLATELET COUNT (AUTO) 345 K/uL (150-450); WHITE BLOOD COUNT (AUTO) 9.9 K/uL (4.3-11.0)
--- NOTE | 2021-04-07 07:20 | NUR ---
PHOTORESIST CONTACT PRINTER OPENING NOTES RECEIVED PATIENT IN BED SLEEPING, NO SIGNS OF ACUTE DISTRESS NOTED. WRIST RESTRAINTS IN PLACE. PER FELT FINISHER, PATIENT HAS EPISODES OF AGITATION, TRYING TO GET OOB. ON ROOM AIR SATURATION AT 99%, NO SOB NOTED, BREATHING EVEN AND UNLABORED. LANDY MIDLINE INTACT. F/C INTACT, DRAINING CLEAR YELLOW COLORED URINE. SAFETY MEASURES IN PLACE. BED LOCKED AND IN LOWEST POSITION, SR UP X4, CALL LIGHT PLACED WITHIN EASY REACH. SITTER AT BEDSIDE. WILL CONTINUE TO MONITOR.
[2021-04-07 07:56] LABS: CALCIUM, SERUM 9.5 mg/dL (8.5-10.1); CREATININE 0.9 mg/dL (0.6-1.3); POTASSIUM 3.5 mmol/L (3.5-5.1)
[2021-04-07] MEDS: VANCOMYCIN 1 GM in IV D5W 250 ML IV SCH ×2 (08:09→20:13)
[2021-04-07] MEDS: PANTOPRAZOLE 40 MG VIAL IV SCH (08:45)
--- NOTE | 2021-04-07 10:00 | NUR ---
RN NOTES PATIENT NOTED WITH RESTLESSNESS, TRYING TO GET OOB, WANTED F/C REMOVED, PULLING IT OUT. F/C REMOVED, NO INDICATION, CN AWARE. WILL MONITOR FOR URINARY RETENTION.
--- NOTE | 2021-04-07 10:10 | NUR ---
RN NOTES LORAZEPAM NOT ADMINISTERED, PT DOESN'T NEED IT ANYMORE AT THIS TIME. WILL CONTINUE TO MONITOR.
--- NOTE | 2021-04-07 11:05 | NUR ---
RN NOTES PATIENT ASSISTED TO BATHROOM, ABLE TO VOID WITHOUT DIFFICULTY. NO SIGNS OF URINARY RETENTION, NO C/O BLADDER DISCOMFORT.
[2021-04-07] MEDS: ENSURE CLEAR 237 ML LIQUID (MIX BERRY) PO SCH (18:17)
--- NOTE | 2021-04-07 18:50 | NUR ---
MS RN CLOSING NOTES PATIENT IN BED SLEEPING, EAILY AROUSED. NO SIGNS OF ACUTE DISTRESS NOTED. NOTED WITH EPISODES OF TRYING TO GET OOB UNASSISTED EARLIER OF THE SHIFT, MORE QUIETER AND CALMER NOW. SOFT WRIST RESTRAINT RELEASED FOR NOW. ASSISTED TO BATHROOM NEEDED. ON ROOM AIR SATURATION AT 99%, NO SOB NOTED, BREATHING EVEN AND UNLABORED. LANDY MIDLINE INTACT. ALL DUE MEDS GIVEN. ABLE TO TOLERATE CLEAR LIQUID DIET. SAFETY MEASURES IN PLACE. BED LOCKED AND IN LOWEST POSITION, SR UP X4, CALL LIGHT PLACED WITHIN EASY REACH. SITTER AT BEDSIDE. WILL ENDORSE TO NEXT SHIFT FOR CONTINUITY OF CARE.
--- NOTE | 2021-04-07 19:30 | NUR ---
MS/RN OPENING NOTE RECEIVED PATIENT SLEEPING IN BED. ALERT AND ORIENTED X 1-2. DENIES PAIN AT THIS TIME. CONTINUES ON ROOM AIR WITH NO S/SX OF RESPIRATORY DISTRESS NOTED. IV ACCESS TO RIGHT UPPER ARM MIDLINE INTACT AND PATENT. CONTINUES ON IVF. CONTINUES ON IV ABX. SITTER CURRENTLY AT BEDSIDE. CONTINUES ON CLEAR LIQUID DIET WITH NO S/SX OF ASPIRATION NOTED. CALL LIGHT WITHIN REACH. ASPIRATION, FALL AND SAFETY PRECAUTIONS MAINTAINED. WILL CONTINUE TO MONITOR.
[2021-04-07 20:00] VITALS: BP 129/86
[2021-04-07] MEDS: ENOXAPARIN SODIUM 40 MG/0.4 ML DISP.SYRIN SQ SCH (22:31)
[2021-04-08] MEDS: ONDANSETRON HCL/PF 4 MG/2 ML VIAL IVP PRN (01:39)
[2021-04-08] MEDS: PIPERACILLIN /TAZOBACTAM 3.375 G in IV D5W 100 ML IV SCH ×2 (01:39→11:16)
[2021-04-08] MEDS ORDERED: ACETAMINOPHEN 650 MG/20.3 ML UDC PO PRN (04:00)
[2021-04-08] MEDS: ACETAMINOPHEN 650 MG/20.3 ML UDC PO PRN ×2 (04:01→11:16)
[2021-04-08] MEDS: LORAZEPAM INJ 2 MG/ML VIAL IV PRN ×3 (04:05→20:04)
[2021-04-08] MEDS: IV NS 0.9% 1,000 ML IV PRN (06:15)
--- NOTE | 2021-04-08 06:40 | NUR ---
MS/RN CLOSING NOTE PATIENT CURRENTLY SLEEPING IN BED. ALERT AND ORIENTED X 1-2. DENIES PAIN AT THIS TIME. CONTINUES ON ROOM AIR WITH NO S/SX OF RESPIRATORY DISTRESS NOTED. IV ACCESS TO RIGHT UPPER ARM MIDLINE INTACT AND PATENT. CONTINUES ON IVF. CONTINUES ON IV ABX. SITTER CURRENTLY AT BEDSIDE. CONTINUES ON CLEAR LIQUID DIET WITH NO S/SX OF ASPIRATION NOTED. CALL LIGHT WITHIN REACH. ASPIRATION, FALL AND SAFETY PRECAUTIONS MAINTAINED. WILL ENDORSE PLAN OF CARE TO ONCOMING SHIFT.
[2021-04-08 07:09] LABS: CALCIUM, SERUM 9.2 mg/dL (8.5-10.1); CREATININE 1.1 mg/dL (0.6-1.3); POTASSIUM 3.3 mmol/L (3.5-5.1)
[2021-04-08 08:33] LABS: BASOPHILS # (AUTO) 0.1 K/uL (0.0-0.2); EOSINOPHILS % (AUTO) 3.2 % (0.0-6.0); HEMATOCRIT 44 % (39-51); HEMOGLOBIN 15.5 g/dL (13.5-17.5); LYMPHOCYTES # (AUTO) 0.8 K/uL (0.8-4.8); LYMPHOCYTES % (AUTO) 12.3 % (20.0-44.0); MEAN CORPUSCULAR HGB CONC 35 g/dl (31.0-36.0); MEAN CORPUSCULAR VOLUME 97 fL (80-96); MONOCYTES # (AUTO) 1.2 K/uL (0.1-1.30); MONOCYTES % (AUTO) 18.7 % (2.0-12.0); NEUTROPHILS # (AUTO) 4.1 K/uL (1.8-8.9); NEUTROPHILS % (AUTO) 64.8 % (43.0-81.0); PLATELET COUNT (AUTO) 333 K/uL (150-450); RED BLOOD CELL COUNT(AUTO) 4.58 MIL/uL (4.5-6.0); WHITE BLOOD COUNT (AUTO) 6.4 K/uL (4.3-11.0)
[2021-04-08] MEDS: VANCOMYCIN 1 GM in IV D5W 250 ML IV SCH (08:57)
[2021-04-08] MEDS: PANTOPRAZOLE 40 MG VIAL IV SCH (08:58)
[2021-04-08] MEDS: ENSURE CLEAR 237 ML LIQUID (MIX BERRY) PO SCH ×3 (08:58→18:57)
--- NOTE | 2021-04-08 10:11 | NUR ---
PT RECEIVED RESTING COMFORTABLY IN BED. NO S/S OR C/O PAIN OR DISTRESS NOTED. SIDE RAILS UP X2, CALL LIGHT LEFT WITHIN REACH. WILL CONTINUE PLAN OF CARE. Addendum: 04/08/21 at 1309 by CHET JOEL RN TIME:729 Addendum: 04/08/21 at 1309 by CHET JOEL RN SITTER AT BEDSIDE. NO SOFT WRIST RESTRAINTS APPLIED. WILL CONTINUE TO MONITOR.
[2021-04-08] MEDS: POTASSIUM CL. PREMIX PERIPHER. 50 ML IV SCH ×2 (15:40→17:40)
--- NOTE | 2021-04-08 19:50 | NUR ---
MS/RN OPENING NOTE PATIENT RESTING IN BED. AWAKE, ALERT AND ORIENTED X 2. DENIES PAIN AT THIS TIME. CONTINUES ON ROOM AIR WITH NO S/SX OF RESPIRATORY DISTRESS NOTED. IV ACCESS TO RIGHT UPPER ARM MIDLINE INTACT AND PATENT. CONTINUES ON IVF. CONTINUES ON IV ABX. SITTER CURRENTLY AT BEDSIDE. CONTINUES ON SOFT DIET WITH NO S/SX OF ASPIRATION NOTED. CALL LIGHT WITHIN REACH. ASPIRATION, FALL AND SAFETY PRECAUTIONS MAINTAINED. WILL CONTINUE TO MONITOR.
--- NOTE | 2021-04-08 19:51 | NUR ---
CHANGE OF SHIFT REPORT PT RESTING COMFORTABLY IN BED. NO S/S OR C/O PAIN OR DISTRESS NOTED. SIDE RAILS UP X2, CALL LIGHT LEFT WITHIN REACH. PT KEPT CLEAN DRY, AND COMFORTABLE. NO SIGNIFICANT CHANGES SINCE PREVIOUS SHIFT. WILL GIVE REPORT TO LOUISE BRUCE.
[2021-04-08 20:00] VITALS: BP 123/83
[2021-04-08] MEDS: ENOXAPARIN SODIUM 40 MG/0.4 ML DISP.SYRIN SQ SCH (22:48)
[2021-04-09] MEDS: ACETAMINOPHEN 650 MG/20.3 ML UDC PO PRN
[2021-04-09] MEDS: ONDANSETRON HCL/PF 4 MG/2 ML VIAL IVP PRN (00:30)
[2021-04-09] MEDS: LORAZEPAM INJ 2 MG/ML VIAL IV PRN (02:30)
--- NOTE | 2021-04-09 06:55 | NUR ---
MS/RN NOTE PATIENT CURRENTLY RESTING IN BED. AWAKE, ALERT AND ORIENTED X 2. DENIES PAIN AT THIS TIME. CONTINUES ON ROOM AIR WITH NO S/SX OF RESPIRATORY DISTRESS NOTED. IV ACCESS TO RIGHT UPPER ARM MIDLINE INTACT AND PATENT. CONTINUES ON IVF. CONTINUES ON IV ABX. SITTER CURRENTLY AT BEDSIDE. CONTINUES ON SOFT DIET WITH NO S/SX OF ASPIRATION NOTED. CALL LIGHT WITHIN REACH. ASPIRATION, FALL AND SAFETY PRECAUTIONS MAINTAINED. WILL ENDORSE PLAN OF CARE TO ONCOMING SHIFT.
[2021-04-09 08:00] VITALS: BP 131/95
[2021-04-09] MEDS: ENSURE CLEAR 237 ML LIQUID (MIX BERRY) PO SCH (08:00)
--- NOTE | 2021-04-09 08:00 | NUR ---
RN Note Patient received in bed AO x 1-2, able to responds all stimuli. Respiratory even and unlabored on room air, no SOB observed. Skin is warm to touch, keep clean/dry. Patient does no appears pain or discomfort this morning. Call light within reach, kept elevated HOB for ensure airway and lower bed position for safety. Will continue to monitor.
[2021-04-09 08:54] LABS: CALCIUM, SERUM 8.7 mg/dL (8.5-10.1); CREATININE 0.9 mg/dL (0.6-1.3); POTASSIUM 3.7 mmol/L (3.5-5.1)
[2021-04-09] MEDS ORDERED: PANTOPRAZOLE 40 MG/PACK PACK NG SCH (09:00)
[2021-04-09 09:08] LABS: BASOPHILS % (AUTO) 0.7 % (0.0-2.0); EOSINOPHILS % (AUTO) 5.5 % (0.0-6.0); HEMATOCRIT 40 % (39-51); HEMOGLOBIN 14.2 g/dL (13.5-17.5); LYMPHOCYTES # (AUTO) 1.2 K/uL (0.8-4.8); LYMPHOCYTES % (AUTO) 18.5 % (20.0-44.0); MEAN CORPUSCULAR HGB CONC 36 g/dl (31.0-36.0); MEAN CORPUSCULAR VOLUME 96 fL (80-96); MONOCYTES # (AUTO) 1.5 K/uL (0.1-1.30); MONOCYTES % (AUTO) 22.2 % (2.0-12.0); NEUTROPHILS # (AUTO) 3.5 K/uL (1.8-8.9); NEUTROPHILS % (AUTO) 53.1 % (43.0-81.0); PLATELET COUNT (AUTO) 315 K/uL (150-450); RED BLOOD CELL COUNT(AUTO) 4.14 MIL/uL (4.5-6.0); WHITE BLOOD COUNT (AUTO) 6.6 K/uL (4.3-11.0)
--- NOTE | 2021-04-09 10:24 | NUR ---
SS consult requested for homelessness and drug abuse. SW will follow up at a later time.
[2021-04-09] MEDS: IV NS 0.9% 1,000 ML IV PRN (10:29)
[2021-04-09 11:42] LABS: BAND % (MANUAL) 3 % (0.0-5.0); EOSINOPHILS % (MANUAL) 4 % (0-4); LYMPHOCYTES % (MANUAL) 16 % (16-48); MONOCYTES % (MANUAL) 19 % (0-11.0); NEUTROPHILS % (MANUAL) 58 (42-76)
--- NOTE | 2021-04-09 12:26 | NUR ---
"SS Consult: SS Consult requested for homelessness & Drug abuse. The pt. is a 35-year-old male patient who was admitted for OD. Upon SS consult, the pt. is A&O x 4 and makes good eye contact. The pt. appears unkempt and presents with an irritable mood and affect. The pt. cooperative with SW. Pt. Pt. denies current SI/HI and denies hallucinations. SW explored pt.s living situation. Per the pt., he has been experiencing homelessness five years. Pt. states he has family but does not want to reach out for help. SW explored pt.s drug & ETOH use. Pt. states he uses methamphetamine & alcohol sometimes. SW provided addiction counseling and intervention. Pt. stated that he is not interested in rehab at this time and refused referral. SW explored pt.s mental health Hx. Pt. denies any Hx. with mental health issues. Pt. states he does not receive any financial assistance. Per pt. he is ambulatory & independent with all his ADLs. Plan: Pt. signed homeless waiver & it was placed in the pt.s chart. SW provided homeless resources to pt. and he accepted them. Pt. is agreeable to [facility] placement. DANITZA provided bus route to [facility] who accept walk ins at 4:30pm. DANITZA discussed DC plan with pt.s nurse, Alisha. Year-round shelters: [facility] [address] [place], [place] [id number] ; [facility] [address] [place] [address]; [facility] [id number] [facility] [address] [place] Shelters: SPA 2 | [facility] Kaia: [facility] Address: Confidential (call for location ) Population Served: Coed # of Beds: 57 SPA 4 | [facility] Provider: [facility] Address: [address] [place] [address] # of Beds: 49 Population Served: Coed SPA 6 | [facility] Provider: [facility] Address: [address] [place] [address] # of Beds: 49 Population Served: Coed [facility] Provider: Jc GENAO Address: [address] [facility] [address] # of Beds: 20 Population Served: Women [place] Facility Provider: [facility] Address: [address] [facility] [address] # of Beds: 30 Population Served: Women SPA 8 | [facility] Library Provider: Ophelia of [place] Address: [address] [facility] [address] # of Beds: 65 Population Served: Coed Hygiene: [facility]: [address] [facility] ; [facility] [address] [facility] ; [facility] [address] [facility] . Food Resources: [place] [facility] at [facility]- [address] [facility]; Meet Each Need with Dignity ([facility]) [address] [facility]; [facility] [address] [facility]; [facility] 8589 [facility]. Mental Health resources provided: [facility] [address] [place], [place] [phone] ; [facility] [address] [facility] [address], [place], [place] [id number] ; Phyllis Rosi [facility] [address] [place] [address] ; [facility] [address] [place], [place] [id number] Healthcare Clinics: [facility] [address] [facility], [address] [place]. [place] ; [facility] [address] [place] [address]; [facility] [address] [facility]. [place] [phone]) [phone] Counseling--Outpatient [facility] [address] [place], [place] [address] (Specializes in in-depth psychotherapy for emotional distress: anxiety, depression, interpersonal conflicts, life transitions, childhood abuse) [facility] Center [address] [place], [place] [phone] (Assist with solving problem marital difficulties, separation & divorce, aging parents, & grief, chronic & terminal illness) [facility] [address] [place] [address] (Deal with loss & grief, anxiety, marital difficulties) Homebound/Mental Health Services [address] [facility] [address] [place] [address] (Provide in-home mental services to people who are incapable of leaving their homes) [facility] Senior Service/Resource Center [address] [place] [address] [facility] [address] [place] [address] PSYCHIATRIC OUTPATIENT SERVICES [facility] Partial Hospitalization and Intensive Outpatient Program (Managed Care and Hubbard Only)[address] [facility] [phone] [facility] Partial Hospitalization and Outpatient [id number] Psychiatric [address] [place], [place] [phone] [facility] [id number] [facility] [address] [place], [place] [phone] [facility] Partial Hospitalization and Outpatient [id number] [place], [phone] Substance Abuse resources provided included: [facility] Substance Abuse Self-Helpline (SAS) ; [facility] [address] [facility] [phone] ; [facility] [place] [address] [facility] [address] ; [facility] [address] [facility]. [facility] [address] ; [facility] [address] [facility] [address] ; [facility] [address] [facility] [address] ; [facility] [address] [facility] [address] ; [facility] Substance Abuse Helpline([facility] ; [facility] ; [facility] [place]; [facility] [place]; [facility] [place]; [facility] [address]; [facility] [place]; [facility] [place]; [facility] [place]; [facility], [facility]. [place]; Alcoholics Anonymous -[facility]; Ws-Orju-Iahhflq ; Marijuana Anonymous [facility]; Narcotics Anonymous www.na.org;"
--- NOTE | 2021-04-09 13:00 | NUR ---
Patient signed AMA who understanding about risks and consequences involved in leaving the hospital at this time, and patient left facility. Removed Midline before patient leave, informed MD regarding above.
--- NOTE | 2021-04-09 13:00 | NUR ---
Incident report is done.
== END 2021-04-09 13:00 | disposition left against medical advice (07) | DRG 812 ==
LOC: ER 19:06 → ICU 20:52 → EDBD 20:52 → TELE 04-06 17:11 → MED 04-07 10:32
PROVIDERS: ADMIT Registered Nurse; ATTEND Student in an Organized Health Care Education/Training Program
PROC: 5A1945Z Respiratory Ventilation, 24-96 Consecutive Hours (ICD-10-PCS; principal; 2021-04-01)
PROC: 0BH18EZ Insertion of Endotracheal Airway into Trachea, Via Natural or Artificial Opening Endoscopic (ICD-10-PCS; 2021-04-01)
DX: T43.621A Poisoning by amphetamines, accidental (unintentional), initial encounter (principal); J96.01 Acute respiratory failure with hypoxia; J69.0 Pneumonitis due to inhalation of food and vomit; K72.00 Acute and subacute hepatic failure without coma; G92.8 Other toxic encephalopathy; F10.129 Alcohol abuse with intoxication, unspecified; Y90.8 Blood alcohol level of 240 mg/100 ml or more; F15.10 Other stimulant abuse, uncomplicated; Y92.410 Unspecified street and highway as the place of occurrence of the external cause; Z20.822 Contact with and (suspected) exposure to COVID-19; E87.6 Hypokalemia; T51.0X1A Toxic effect of ethanol, accidental (unintentional), initial encounter; Z59.00 Homelessness unspecified; E66.9 Obesity, unspecified; R93.0 Abnormal findings on diagnostic imaging of skull and head, not elsewhere classified; F32.9 Major depressive disorder, single episode, unspecified; M62.82 Rhabdomyolysis; Z68.29 Body mass index [BMI] 29.0-29.9, adult
CPT/HCPCS: 31720; 36415; 36600; 70450-TC; 71045-TC; 80048-TC; 80053-TC; 80076-TC; 80202-TC; 82550-TC; 82553; 82803-TC; 82962-TC; 83605-TC; 83735-TC; 84100-TC; 84443-TC; 84484-TC; 85025-TC; 85652-TC; 85730-TC; 87040-TC; 87070-TC; 87081-TC; 87086-TC; 92526; 92611-TC; 93307-TC; 94002-TC; 94003-TC; 94761-TC; 94762-TC; 94799-TC; 97116-TC; 97530-TC; 99082-TC; A6253; C9113; G0378; G0480; J0330; J1630; J1650; J2060; J2310; J2405; J2543; J3370; J3480; J3490; J7030; J7050; J7060; U0003

== ENCOUNTER 2021-04-17 15:11 | Emergency (ER) | payer OTHER ==
[~2021-04-17] VITALS: Ht 172.7 cm; Wt 84.4 kg
[2021-04-17 16:00] VITALS: BP 121/60
--- NOTE | 2021-04-17 16:00 | NUR ---
PT PLACED ON ROOM 20. STABLE VITAL SIGNS. EASILY AROUSABLE.
--- NOTE | 2021-04-17 16:00 | NUR ---
PT PLACED ON ROOM 20. STABLE VITAL SIGNS. EASILY AROUSABLE.
--- NOTE | 2021-04-17 17:36 | NUR ---
PATIENT LEFT WITHOUT BEING SEEN BY ERMD. HOLLY.
--- NOTE | 2021-04-17 17:36 | NUR ---
PATIENT LEFT WITHOUT BEING SEEN BY ERMD. HOLLY.
[2021-04-18] MEDS ORDERED: ACET-2605 PO (16:41)
== END 2021-04-17 17:39 | disposition left against medical advice (07) ==
LOC: ER 15:17
DX: Z53.21 Procedure and treatment not carried out due to patient leaving prior to being seen by health care provider (principal); Z60.2 Problems related to living alone

== ENCOUNTER 2021-04-18 13:29 | Emergency (ER) | payer OTHER ==
[~2021-04-18] VITALS: Ht 172.7 cm; Wt 84.4 kg
[2021-04-18 13:46] VITALS: BP 156/90
--- NOTE | 2021-04-18 13:50 | NUR ---
BIB RA 878 C/O FLU-LIKE SX,COUGH AND BODY ACHE 5/10 SINCE THIS MORNING. IN ROOM AIR AND DENIES SOB. RESPIRATION REGULAR AND UNLABORED. WILL CONTINUE TO MONITOR THE PATIENT.
--- NOTE | 2021-04-18 16:14 | NUR ---
RAPID INFLUENZA, COVID ANTIGEN AND COVID PCR SWABS DONE AND SENT TO THE LAB
[2021-04-18] MEDS ORDERED: ACET-2605 PO (16:41)
--- NOTE | 2021-04-18 17:26 | NUR ---
PT COVID ANTIGEN (+) CANDIDO HAYNES AWARE. CONTRACT DROPLET ISOLATION IN PLACE
--- NOTE | 2021-04-22 12:47 | NUR ---
POSITIVE COVID PCR RECEIVED FROM LAB. TRIED TO CALL PATIENT, NUMBER NOT IN USE
== END 2021-04-18 17:54 | disposition home or self-care (01) ==
LOC: ER 13:31
DX: U07.1 COVID-19 (principal)
CPT/HCPCS: 71045; 87426; 87804; 99284; C9803; U0003

== ENCOUNTER 2022-04-01 22:53 | Emergency (ER) | payer OTHER ==
[~2022-04-01] VITALS: Ht 170.2 cm; Wt 72.6 kg
[~2022-04-01 22:53] MED LIST: ACET-2605 PO
[2022-04-01 23:03] VITALS: BP 133/74
--- NOTE | 2022-04-01 23:27 | NUR ---
Patient discharged to home in stable condition. Written and verbal after care instructions given. Patient verbalizes understanding of instruction.
== END 2022-04-01 23:27 | disposition home or self-care (01) ==
LOC: ER 23:06
DX: F10.129 Alcohol abuse with intoxication, unspecified (principal); Z60.2 Problems related to living alone; Z59.00 Homelessness unspecified; Y90.9 Presence of alcohol in blood, level not specified

== ENCOUNTER 2024-03-11 06:42 | Emergency (ER) | payer OTHER ==
[~2024-03-11] VITALS: Ht 167.6 cm; Wt 81.6 kg
[~2024-03-11 06:42] MED LIST changes: +CEPH-570 PO; +IBUP-1957 PO; +MUPI22OI7 TP
[2024-03-11 07:00] VITALS: BP 134/85; TEMP 98
[2024-03-11] MEDS ORDERED: LIDO30AD10 TP (07:12)
[2024-03-11] MEDS ORDERED: CYCL5TAB PO (07:12)
[2024-03-11] MEDS ORDERED: HYDR-4303 PO (07:12)
[2024-03-11] MEDS ORDERED: HYDROCODONE/APAP 5/325MG TABLET ONE (07:25)
[2024-03-11] MEDS: HYDROCODONE/APAP 5/325MG TABLET PO ONE (07:27)
[2024-03-11] MEDS: LIDOCAINE 5% (PATCH) 1 EA PATCH TP STA (07:35)
[2024-03-11 07:45] VITALS: O2SAT 100
== END 2024-03-11 07:46 | disposition home or self-care (01) ==
LOC: ER 06:51
DX: S22.31XA Fracture of one rib, right side, initial encounter for closed fracture (principal); F32.A Depression, unspecified; Z59.00 Homelessness unspecified; W18.30XA Fall on same level, unspecified, initial encounter; Y93.89 Activity, other specified; Y92.89 Other specified places as the place of occurrence of the external cause; Y99.8 Other external cause status

== ENCOUNTER 2024-03-18 02:15 | Emergency (ER) | payer OTHER ==
[~2024-03-18] VITALS: Ht 167.6 cm; Wt 81.6 kg
[~2024-03-18 02:15] MED LIST changes: +CYCL5TAB PO; +HYDR-4303 PO; +LIDO30AD10 TP
[2024-03-18] MEDS ORDERED: IBUPROFEN 600 MG TABLET ONE (03:34)
[2024-03-18] MEDS: IBUPROFEN 600 MG TABLET PO ONE (03:39)
[2024-03-18 06:00] VITALS: BP 128/81; TEMP 98; O2SAT 99
== END 2024-03-18 06:01 | disposition home or self-care (01) ==
LOC: ER 02:17
DX: L98.9 Disorder of the skin and subcutaneous tissue, unspecified (principal); F32.A Depression, unspecified; F10.129 Alcohol abuse with intoxication, unspecified; Z59.00 Homelessness unspecified; Y90.9 Presence of alcohol in blood, level not specified

== ENCOUNTER 2024-03-28 07:14 | Emergency (ER) | payer OTHER ==
[~2024-03-28] VITALS: Ht 167.6 cm; Wt 81.6 kg
[2024-03-28 07:35] VITALS: BP 157/99; TEMP 98.8
[2024-03-28] MEDS ORDERED: IBUPROFEN 400 MG TABLET ONE (08:10)
[2024-03-28] MEDS: IBUPROFEN 400 MG TABLET PO ONE (08:13)
[2024-03-28 08:54] VITALS: O2SAT 98
== END 2024-03-28 08:57 | disposition home or self-care (01) ==
LOC: ER 07:15
DX: M79.671 Pain in right foot (principal); M79.672 Pain in left foot; F32.A Depression, unspecified; Z79.899 Other long term (current) drug therapy; Z59.00 Homelessness unspecified

== ENCOUNTER 2024-05-24 00:44 | Emergency (ER) | payer OTHER ==
[~2024-05-24] VITALS: Ht 167.6 cm; Wt 81.6 kg
[2024-05-24] MEDS ORDERED: POLY10DR3 EACHEYE (01:17)
[2024-05-24] MEDS ORDERED: IBUPROFEN 400 MG TABLET ONE (01:23)
[2024-05-24] MEDS ORDERED: TETRAcaine 5 ML BOTTLE ONE (01:23)
[2024-05-24] MEDS ORDERED: ACETAMINOPHEN ES 500 MG TABLET ONE (01:23)
[2024-05-24] MEDS: ACETAMINOPHEN ES 500 MG TABLET PO ONE (01:30)
[2024-05-24] MEDS: IBUPROFEN 400 MG TABLET PO ONE (01:30)
[2024-05-24] MEDS: TETRACAINE HCL 0.5% OPHTALMIC 15 ML BOTTLE OP ONE (01:30)
[2024-05-24 01:31] VITALS: BP 145/88; TEMP 98.2; O2SAT 98
== END 2024-05-24 01:31 | disposition home or self-care (01) ==
LOC: ER 00:50
DX: H10.31 Unspecified acute conjunctivitis, right eye (principal); Z59.00 Homelessness unspecified

== ENCOUNTER 2024-10-20 08:32 | Emergency (ER) | payer OTHER ==
[~2024-10-20] VITALS: Ht 167.6 cm; Wt 81.6 kg
[~2024-10-20 08:32] MED LIST changes: +POLY10DR3 EACHEYE
[2024-10-20] MEDS: NAPROXEN 250 MG TABLET PO ONE (09:18)
[2024-10-20] MEDS ORDERED: NAPR500T6 PO (09:21)
[2024-10-20] MEDS ORDERED: CLOT15CR27 TP (09:21)
[2024-10-20 10:14] VITALS: BP 140/90; TEMP 98.6; O2SAT 95
== END 2024-10-20 10:15 | disposition home or self-care (01) ==
LOC: ER 08:46
DX: B35.3 Tinea pedis (principal); L98.9 Disorder of the skin and subcutaneous tissue, unspecified; Z59.00 Homelessness unspecified; Z79.899 Other long term (current) drug therapy

== ENCOUNTER 2024-11-14 22:27 | Emergency (ER) | payer OTHER ==
[~2024-11-14] VITALS: Ht 177.8 cm; Wt 81.6 kg
[~2024-11-14 22:27] MED LIST changes: +CLOT15CR27 TP; +NAPR500T6 PO
[2024-11-14] MEDS ORDERED: NALOXONE PREFILLED SYRINGE 2 MG/2 ML SYRINGE ONE (22:42)
[2024-11-14] MEDS: NALOXONE PREFILLED SYRINGE 2 MG/2 ML SYRINGE IM ONE (22:46)
[2024-11-14 23:10] LABS: PLATELET COUNT (AUTO) 169 K/uL (150-450); RED BLOOD CELL COUNT(AUTO) 4.69 MIL/uL (4.5-6.0); RED CELL DISTRIBUTION WIDTH 12.8 % (11.5-15.0); WHITE BLOOD COUNT (AUTO) 6.9 K/uL (4.3-11.0)
[2024-11-14 23:12] LABS: CALCIUM, SERUM 8.8 mg/dL (8.5-10.1); CREATININE 1.0 mg/dL (0.6-1.3); SODIUM SERUM 137 mmol/L (136-145); UREA NITROGEN, BLOOD 5 mg/dL (7-18)
[2024-11-14 23:25] LABS: ALCOHOL, BLOOD 351 mg/dL (0-10); ASPARTATE AMINOTRANSFERASE 141 U/L (15-37); TOTAL PROTEIN, SERUM 7.8 g/dL (6.4-8.2)
[2024-11-14 23:57] LABS: APPEARANCE,URINE CLEAR (CLEAR); BLOOD, URINE NEGATIVE Ery/uL (NEGATIVE); LEUKOCYTE ESTERASE ,URINE NEGATIVE (NEGATIVE); NITRITE, URINE NEGATIVE (NEGATIVE); UGLUCOSE NEGATIVE (NEGATIVE)
[2024-11-15 00:27] LABS: AMPHETAMINE, URINE POSITIVE (NEGATIVE); BARBITURATE, URINE NEGATIVE (NEGATIVE); BENZODIAZEPINE, URINE NEGATIVE (NEGATIVE); COCCAINE, URINE NEGATIVE (NEGATIVE); OPIATE, URINE NEGATIVE (NEGATIVE)
[2024-11-15 00:29] LABS: CANNABINOID, URINE POSITIVE (NEGATIVE)
[2024-11-15 05:30] VITALS: BP 112/80; TEMP 98; O2SAT 97
== END 2024-11-15 05:30 | disposition home or self-care (01) ==
LOC: ER 22:28
DX: R45.6 Violent behavior (principal); F10.129 Alcohol abuse with intoxication, unspecified; F19.10 Other psychoactive substance abuse, uncomplicated; E87.6 Hypokalemia; Z59.00 Homelessness unspecified; Z79.899 Other long term (current) drug therapy; Z20.822 Contact with and (suspected) exposure to COVID-19; Y90.8 Blood alcohol level of 240 mg/100 ml or more
CPT/HCPCS: 99285; 96372; 85025; 80048; 80076; 81003; 36415; 87426; 80143; 80320; 80307; J2312; G0480

== ENCOUNTER 2024-12-07 03:55 | Emergency (ER) | payer OTHER ==
[~2024-12-07] VITALS: Ht 167.6 cm; Wt 81.6 kg
[2024-12-07 04:09] VITALS: BP 139/93; TEMP 98.9; O2SAT 99
[2024-12-07] MEDS ORDERED: IBUP-1490 PO (04:18)
[2024-12-07] MEDS ORDERED: CEPH-570 PO (04:18)
[2024-12-07] MEDS ORDERED: SULF1TAB48 PO (04:18)
[2024-12-07] MEDS ORDERED: ACETAMINOPHEN ES 500 MG TABLET ONE (04:26)
[2024-12-07] MEDS ORDERED: IBUPROFEN 600 MG TABLET ONE (04:27)
[2024-12-07] MEDS ORDERED: CEPHALEXIN MONOHYDRATE 500 MG CAPSULE PO ONE (04:27)
[2024-12-07] MEDS ORDERED: SULFAMETH/TRIMETH 800/160 MG 1 UDTAB TABLET ONE (04:27)
[2024-12-07] MEDS: SULFAMETH/TRIMETH 800/160 MG 1 UDTAB TABLET PO ONE (04:28)
[2024-12-07] MEDS: IBUPROFEN 600 MG TABLET PO ONE (04:28)
[2024-12-07] MEDS: CEPHALEXIN MONOHYDRATE 500 MG CAPSULE PO ONE (04:28)
[2024-12-07] MEDS: ACETAMINOPHEN ES 500 MG TABLET PO ONE (04:28)
== END 2024-12-07 04:51 | disposition home or self-care (01) ==
LOC: ER 03:58
DX: S51.832A Puncture wound without foreign body of left forearm, initial encounter (principal); L03.114 Cellulitis of left upper limb; F19.10 Other psychoactive substance abuse, uncomplicated; Z59.00 Homelessness unspecified; X58.XXXA Exposure to other specified factors, initial encounter; Y93.89 Activity, other specified; Y92.89 Other specified places as the place of occurrence of the external cause; Y99.8 Other external cause status

== ENCOUNTER 2025-01-12 11:51 | Inpatient (IN) | payer MEDICAID, OTHER ==
[~2025-01-12] VITALS: Ht 167.6 cm; Wt 86.3 kg
[~2025-01-12 11:51] MED LIST changes: +IBUP-1490 PO; +SULF1TAB48 PO
[2025-01-12] MEDS ORDERED: ONDANSETRON HCL/PF 4 MG/2 ML VIAL ONE (12:26)
[2025-01-12 12:27] LABS: PLATELET COUNT (AUTO) 228 K/uL (150-450); RED BLOOD CELL COUNT(AUTO) 4.49 MIL/uL (4.5-6.0); RED CELL DISTRIBUTION WIDTH 13.5 % (11.5-15.0); WHITE BLOOD COUNT (AUTO) 8.8 K/uL (4.3-11.0)
[2025-01-12] MEDS ORDERED: MORPHINE SULFATE INJ 4 MG/ML DISP.SYRIN ONE (12:27)
[2025-01-12] MEDS: ONDANSETRON HCL/PF 4 MG/2 ML VIAL IVP ONE (12:30)
[2025-01-12] MEDS: MORPHINE SULFATE INJ 2 MG/ML DISP.SYRIN IV ONE (12:30)
[2025-01-12] MEDS: IV NS 0.9% 1,000 ML BAG IV ONE (12:30)
[2025-01-12 12:34] LABS: CALCIUM, SERUM 8.4 mg/dL (8.5-10.1); CREATININE 1.3 mg/dL (0.6-1.3); SODIUM SERUM 135 mmol/L (136-145); UREA NITROGEN, BLOOD 18 mg/dL (7-18)
[2025-01-12 12:40] LABS: ASPARTATE AMINOTRANSFERASE 166 U/L (15-37); TOTAL PROTEIN, SERUM 7.5 g/dL (6.4-8.2)
[2025-01-12] MEDS ORDERED: FAMOTIDINE/PF INJ 20 MG/2 ML VIAL IV ONE (14:02)
[2025-01-12] MEDS: FAMOTIDINE/PF INJ 20 MG/2 ML VIAL IV ONE (14:08)
[2025-01-12 16:00] VITALS: BP 154/107; TEMP 98.4; O2SAT 100
[2025-01-12] MEDS ORDERED: MAGNESIUM HYDROXIDE 30 ML UDC PO PRN (16:30)
[2025-01-12] MEDS ORDERED: Thiamine 100 MG in IV D5W 50 ML IV SCH (16:30)
[2025-01-12] MEDS ORDERED: HYDROMORPHONE 1 MG/1 ML DISP.SYRIN ONE (16:33)
[2025-01-12] MEDS: HYDROMORPHONE 1 MG/1 ML DISP.SYRIN IV PRN (16:35)
[2025-01-12] MEDS: IV LR 1000 ML 1,000 ML IV SCH (17:33)
[2025-01-12 17:50] VITALS: BP 145/94; O2SAT 97
[2025-01-13 08:02] VITALS: BP 167/118; TEMP 98.1; O2SAT 100
[2025-01-13] MEDS ORDERED: PANTOPRAZOLE 40 MG VIAL IV SCH (09:00)
[2025-01-13] MEDS: THIAMINE HCL 100 MG TABLET PO SCH (09:05)
[2025-01-13] MEDS: PANTOPRAZOLE 40 MG TABLET.DR PO SCH (09:05)
[2025-01-13] MEDS: FOLIC ACID 1 MG TABLET PO SCH (09:05)
[2025-01-13] MEDS: ONDANSETRON HCL/PF 4 MG/2 ML VIAL IVP PRN (13:16)
[2025-01-13 16:00] VITALS: BP 164/106; TEMP 99.5; O2SAT 98
[2025-01-13] MEDS: ACETAMINOPHEN 325 MG TABLET PO PRN (16:46)
[2025-01-13 20:00] VITALS: BP 168/99; TEMP 98.2; O2SAT 98
[2025-01-13] MEDS: MUPIROCIN OINT 2% 22 GM TUBE TP SCH (21:23)
[2025-01-14 04:00] VITALS: BP 168/99; TEMP 98.2; O2SAT 98
[2025-01-14 08:00] VITALS: BP 145/97; TEMP 98.4; O2SAT 100
[2025-01-14] MEDS ORDERED: PANTOPRAZOLE 40 MG TABLET.DR PO SCH (09:00)
[2025-01-14 11:10] LABS: ASPARTATE AMINOTRANSFERASE 85.0 U/L (15-37); CALCIUM, SERUM 7.6 mg/dL (8.5-10.1); CREATININE 0.9 mg/dL (0.6-1.3); SODIUM SERUM 131.0 mmol/L (136-145); TOTAL PROTEIN, SERUM 6.1 g/dL (6.4-8.2); UREA NITROGEN, BLOOD 8.0 mg/dL (7-18)
[2025-01-14 11:11] LABS: PHOSPHORUS 1.4 mg/dL (2.5-4.9)
[2025-01-14 13:10] LABS: RED BLOOD CELL COUNT(AUTO) 4.09 MIL/uL (4.5-6.0); RED CELL DISTRIBUTION WIDTH 13.4 % (11.5-15.0); WHITE BLOOD COUNT (AUTO) 14.7 K/uL (4.3-11.0)
[2025-01-14 13:18] LABS: PLATELET COUNT (AUTO) 101 K/uL (150-450)
[2025-01-14] MEDS: HYDROCODONE/APAP 5/325MG TABLET PO PRN (14:33)
[2025-01-14] MEDS: Magnesium 1GM/D5W 100ML PREMIX 100 ML IV SCH (14:36)
[2025-01-14] MEDS: NEUTRA PHOS 1 POWD.PACKET PO ONE (14:36)
[2025-01-14 16:00] VITALS: BP 150/99; TEMP 98.1; O2SAT 96
[2025-01-14] MEDS ORDERED: K PHOS NEUTRAL 250 MG TABLET PO ONE (17:00)
[2025-01-14 20:00] VITALS: BP 150/105; TEMP 99.1; O2SAT 96
[2025-01-15 08:00] VITALS: BP 165/93; TEMP 98.2; O2SAT 99
[2025-01-15 08:49] VITALS: BP 150/93; TEMP 98.2; O2SAT 99
[2025-01-15 09:46] LABS: PLATELET COUNT (AUTO) 127 K/uL (150-450); RED BLOOD CELL COUNT(AUTO) 3.81 MIL/uL (4.5-6.0); RED CELL DISTRIBUTION WIDTH 13.8 % (11.5-15.0); WHITE BLOOD COUNT (AUTO) 11.2 K/uL (4.3-11.0)
[2025-01-15 10:05] LABS: ASPARTATE AMINOTRANSFERASE 65.0 U/L (15-37); CALCIUM, SERUM 8.2 mg/dL (8.5-10.1); CREATININE 1.0 mg/dL (0.6-1.3); SODIUM SERUM 132.0 mmol/L (136-145); TOTAL PROTEIN, SERUM 6.4 g/dL (6.4-8.2); UREA NITROGEN, BLOOD 5.0 mg/dL (7-18)
[2025-01-15 10:22] LABS: PHOSPHORUS 0.8 mg/dL (2.5-4.9)
[2025-01-15] MEDS: IV NS 0.9% 1,000 ML IV SCH (11:30)
[2025-01-15] MEDS: NEUTRA PHOS 1 POWD.PACKET PO ONE (11:34)
[2025-01-15] MEDS: MAG HYDROX/AL HYDROX/SIMETH 30 ML UDC PO PRN (12:49)
[2025-01-15] MEDS: POTASSIUM CL IV SCH (13:00)
[2025-01-15] MEDS: PERIPHER IV SCH (13:00)
[2025-01-15] MEDS: NS 0.9% IV SCH (13:00)
[2025-01-15 16:00] VITALS: BP 163/81; TEMP 99; O2SAT 97
[2025-01-15 17:22] VITALS: BP 150/81; TEMP 98; O2SAT 97
[2025-01-15 20:00] VITALS: BP 135/92; TEMP 97.9; O2SAT 99
== END 2025-01-15 19:20 | disposition left against medical advice (07) | DRG 282 ==
LOC: ER 11:57 → MED 16:32
DX: K85.20 Alcohol induced acute pancreatitis without necrosis or infection (principal); E83.39 Other disorders of phosphorus metabolism; F10.10 Alcohol abuse, uncomplicated; Y90.7 Blood alcohol level of 200-239 mg/100 ml; E83.42 Hypomagnesemia; E87.1 Hypo-osmolality and hyponatremia; F32.A Depression, unspecified; Z53.29 Procedure and treatment not carried out because of patient's decision for other reasons; Z59.00 Homelessness unspecified; F19.10 Other psychoactive substance abuse, uncomplicated
CPT/HCPCS: 36415; 76700-TC; 80048-TC; 80053-TC; 80076-TC; 83690-TC; 83735-TC; 84100-TC; 85025-TC; 87081-TC; 98960; A4223; G0378; G0480; J1171; J1308; J2270; J2405; J3411; J3475; J3480; J7030; J7050; J7060; J7120

== ENCOUNTER 2025-02-05 23:27 | Emergency (ER) | payer OTHER ==
[~2025-02-05] VITALS: Ht 175.3 cm; Wt 79.4 kg
[2025-02-05] MEDS ORDERED: ONDANSETRON HCL/PF 4 MG/2 ML VIAL ONE (23:47)
[2025-02-06 00:03] LABS: PLATELET COUNT (AUTO) 395 K/uL (150-450); RED BLOOD CELL COUNT(AUTO) 3.64 MIL/uL (4.5-6.0); RED CELL DISTRIBUTION WIDTH 13.4 % (11.5-15.0); WHITE BLOOD COUNT (AUTO) 9.1 K/uL (4.3-11.0)
[2025-02-06] MEDS: ONDANSETRON HCL/PF 4 MG/2 ML VIAL IVP ONE (00:04)
[2025-02-06 00:11] LABS: CALCIUM, SERUM 8.7 mg/dL (8.5-10.1); CREATININE 0.8 mg/dL (0.6-1.3); SODIUM SERUM 144.0 mmol/L (136-145); UREA NITROGEN, BLOOD 6.0 mg/dL (7-18)
[2025-02-06 00:35] LABS: ASPARTATE AMINOTRANSFERASE 36.0 U/L (15-37); TOTAL PROTEIN, SERUM 7.0 g/dL (6.4-8.2)
[2025-02-06 05:04] VITALS: BP 133/89; TEMP 98.7; O2SAT 98
== END 2025-02-06 05:05 | disposition home or self-care (01) ==
LOC: ER 23:29
DX: R10.30 Lower abdominal pain, unspecified (principal); F10.129 Alcohol abuse with intoxication, unspecified; Z59.00 Homelessness unspecified; Z87.19 Personal history of other diseases of the digestive system; Y90.9 Presence of alcohol in blood, level not specified
CPT/HCPCS: 99285; 85025; 80048; 83690; 80076; 36415; 96374; J2405